=== PATIENT | male | born 1975 | race Caucasian/White ===

== ENCOUNTER 2021-07-01 23:57 | Emergency (ER) | payer SELFPAY ==
[~2021-07-01] VITALS: Ht 190.5 cm; Wt 67.2 kg
[2021-07-02 00:06] VITALS: BP 121/92
[2021-07-02] MEDS ORDERED: TRIM/SULFAMETH 160/800 (SEPTRA DS) TAB PO ONE (00:15)
--- NOTE | 2021-07-02 00:15 | ED Integumentary General ---
General Chief Complaint: Upper Extremity Stated Complaint: POSS INSECT BITE History of Present Illness Date Seen by Provider: Jul 02, 2021 Time Seen by Provider: 00:10 Initial Comments 46-year-old male presents with an abscess/wound on dorsal surface of the left forearm. He reports that he noticed it about 3 days ago. It is red swollen and painful. It currently is open and draining purulent material. Thinks it may be got bit by an insect but is unsure. He has no fever chills or other systemic complaints Allergies and Home Medications Allergies Coded Allergies: No Known Drug Allergies (Unverified , 07/02/21) Patient Home Medication List Home Medication List Reviewed: Yes Review of Systems Review of Systems Constitutional: No chills, No fever EENTM: no symptoms reported Respiratory: no symptoms reported Cardiovascular: no symptoms reported Gastrointestinal: no symptoms reported Genitourinary: see HPI Musculoskeletal: no symptoms reported Skin: see HPI Psychiatric/Neurological: No Symptoms Reported Physical Exam Vital Signs Capillary Refill : General Appearance: no apparent distress Cardiovascular: normal peripheral pulses, regular rate, rhythm Respiratory: lungs clear, normal breath sounds Extremities: normal range of motion Neurologic/Psychiatric: alert, normal mood/affect, oriented x 3 Skin Problem Location: upper extremities (Dorsal surface left forearm) Skin Problem Character: abscess, swelling, warm Progress/Results/Core Measures Progress Progress Note : Progress Note Patient with large abscess/insect bite or other open wound. It is already draining. We will start him on antibiotics and culture. He should follow-up with his primary care provider in a couple days for recheck Departure Impression Primary Impression: Abscess of forearm, left Disposition: 01 HOME, SELF-CARE Condition: Stable Departure-Patient Inst. Referrals: NO,LOCAL PHYSICIAN (PCP/Family) Primary Care Physician Patient Instructions: Skin Abscess Add. Discharge Instructions: Warm moist heat to affected area 3-4 times a day, try to keep wound draining and open 4% topical lidocaine cream or gel as directed on pack to affected area as needed for pain, this is available [id number] at [facility] All discharge instructions reviewed with patient and/or family. Voiced understanding. Scripts Sulfamethoxazole/Trimethoprim (Bactrim Ds Tablet) 1 Each Tablet 1 EACH PO BID, #14 TAB Prov: SHAHNAZ KRUEGER DO 07/02/21 SHAHNAZ KRUEGER DO Jul 02, 2021 00:15
[2021-07-02] MEDS ORDERED: SULF1TAB38 PO (00:22)
== END 2021-07-02 00:35 | disposition home or self-care (01) ==
LOC: ER FS 07-02 00:03
DX: L02.414 Cutaneous abscess of left upper limb (principal)
CPT/HCPCS: 87070; 87077; 87205; 99283